=== PATIENT | male | born 1975 | race Caucasian/White ===

== ENCOUNTER → 2019-07-28 | Outpatient (CLI) | payer BC | END | disposition home or self-care (01) | LOC: LAB SHORT 12:50 → PLD 12:50 | DX: L57.0 Actinic keratosis (principal); D22.5 Melanocytic nevi of trunk | CPT/HCPCS: 88305 ==

== ENCOUNTER → 2020-03-26 | Outpatient (CLI) | payer BC | END | disposition home or self-care (01) | LOC: PLD 11:21 → LAB SHORT 11:21 | DX: B07.9 Viral wart, unspecified (principal) | CPT/HCPCS: 88305 ==